=== PATIENT | male | born 1995 | race African-American/Black ===

== ENCOUNTER 2021-12-30 08:50 | Emergency (ER) | payer OTHER ==
[2021-12-30 12:13] LABS: BILIRUBIN 1+ mg/dL (NEGATIVE); BLOOD 3+ Ery/uL (NEGATIVE); CLARITY CLEAR (CLEAR); COLOR YELLOW (YELLOW); GLUCOSE (U) NORMAL (NORMAL); LEUKOCYTES NEGATIVE Leu/uL (NEGATIVE); NITRITE NEGATIVE (NEGATIVE); PROTEIN 2+ mg/dL (NEGATIVE); SPECIFIC GRAVITY >=1.030 (1.001-1.030); pH 6.5 (5.0-9.0)
[2021-12-30 12:20] LABS: BACTERIA TRACE; MUCOUS LARGE; URINARY RBC 20-50
[2021-12-30] MEDS ORDERED: NORCO 5/3251 EACH PO (12:36)
[2021-12-30] MEDS ORDERED: FLOMAX 0.4 MG0.4 MG PO (12:36)
[2021-12-30] MEDS ORDERED: NAPROXEN500 MG PO (12:36)
== END 2021-12-30 12:40 | disposition home or self-care (01) ==
LOC: FER 08:50
PROVIDERS: Emergency Medicine
DX: N13.0 Hydronephrosis with ureteropelvic junction obstruction (principal); F17.210 Nicotine dependence, cigarettes, uncomplicated; Z28.310 Unvaccinated for COVID-19
CPT/HCPCS: 81001; J1885